=== PATIENT | male | born 1990 | race Hispanic/Latino ===

== ENCOUNTER 2021-10-13 00:19 | Emergency (ER) | payer OTHER, SELFPAY ==
[2021-10-13] MEDS ORDERED: Boostrix 0.5 ML (Tdap) VIAL ONE (01:01)
== END 2021-10-13 02:30 | disposition home or self-care (01) ==
LOC: ERS 00:19
DX: S01.01XA Laceration without foreign body of scalp, initial encounter (principal); W17.89XA Other fall from one level to another, initial encounter; Z23 Encounter for immunization
CPT/HCPCS: 12001; 70450; 72125; 90471; 90715

== ENCOUNTER 2021-10-19 10:41 | Emergency (ER) | payer SELFPAY | END 2021-10-19 12:02 | disposition home or self-care (01) | LOC: ERS 10:41 | DX: S01.01XD Laceration without foreign body of scalp, subsequent encounter (principal); W19.XXXD Unspecified fall, subsequent encounter ==

== ENCOUNTER 2022-01-06 22:18 | Emergency (ER) | payer SELFPAY | END 2022-01-07 00:35 | disposition home or self-care (01) | LOC: ERS 22:18 | DX: S90.31XA Contusion of right foot, initial encounter (principal); W50.0XXA Accidental hit or strike by another person, initial encounter ==